=== PATIENT | male | born 1935 | race Caucasian/White ===

== ENCOUNTER 2017-07-21 06:37 | Day surgery (SDC) | payer OTHER ==
[~2017-07-21] VITALS: Ht 177.8 cm; Wt 85.3 kg
[2017-07-21] MEDS ORDERED: IOHEXOL 350 MG/ML 50 ML BTL (for Cath Lab) OTHER ONE (06:38)
[2017-07-21] MEDS ORDERED: IOHEXOL 350 MG/ML 100 ML BTL (for Cath Lab) OTHER ONE (06:38)
[2017-07-21] MEDS ORDERED: VITA100021 SL (07:09)
[2017-07-21] MEDS ORDERED: ASPI325T27 PO (07:09)
[2017-07-21] MEDS ORDERED: NITR0.4S SL (07:09)
[2017-07-21] MEDS ORDERED: ENAL20TA PO (07:09)
[2017-07-21] MEDS ORDERED: ISOS30TA3 PO (07:09)
[2017-07-21] MEDS ORDERED: LABE300T PO (07:09)
[2017-07-21] MEDS ORDERED: APIX5TAB PO (07:09)
[2017-07-21] MEDS ORDERED: ATOR80TA45 PO (07:09)
[2017-07-21] MEDS ORDERED: HYDR25TA5 PO (07:09)
[2017-07-21] MEDS ORDERED: AMLO5TAB2 PO (07:09)
[2017-07-21 07:12] VITALS: BP 158/93; PULSE 62; RESP 16; TEMP 97.6; O2SAT 98
[2017-07-21] MEDS ORDERED: NS 1000P @30 MLS/HR (KVO) IV SCH (07:15)
[2017-07-21 07:21] LABS: AUTOMATED NEUTROPHIL # 5.5 TH/MM3 (1.8-7.7); BASOPHIL # 0.1 TH/MM3 (0-0.2); EOSINOPHIL # 0.2 TH/MM3 (0-0.4); HEMATOCRIT 36.9 % (39.0-51.0); LYMPH % 13.6 % (9.0-44.0); LYMPHOCYTE # 1.1 TH/MM3 (1.0-4.8); MEAN CELL VOLUME 89.6 FL (80.0-100.0); MEAN CORPUSCULAR HEMOGLOBIN 31.6 PG (27.0-34.0); MEAN CORPUSCULAR HGB CONC 35.2 % (32.0-36.0); MEAN PLATELET VOLUME 6.8 FL (7.0-11.0); MONO % 11.4 % (0.0-8.0); MONOCYTE # 0.9 TH/MM3 (0-0.9); PLATELET COUNT 244 TH/MM3 (150-450); RED BLOOD COUNT 4.11 MIL/MM3 (4.50-5.90); RED CELL DISTRIBUTION WIDTH 13.8 % (11.6-17.2); WHITE BLOOD COUNT 7.7 TH/MM3 (4.0-11.0)
[2017-07-21 07:30] LABS: INTERNATIONAL NORMALIZED RATIO 1.1 RATIO; PROTHROMBIN TIME - PATIENT 10.7 SEC (9.8-11.6)
[2017-07-21 07:40] LABS: BICARBONATE 32.6 MEQ/L (21.0-32.0); CALCIUM 9.8 MG/DL (8.5-10.1); CREATININE 0.77 MG/DL (0.60-1.30)
[2017-07-21] MEDS ORDERED: POTASSIUM CHLORIDE 20 MEQ CONTROLLED RELEASE TAB PO ONE (08:15)
[2017-07-21] MEDS ORDERED: HEPARIN-NS/PF INJ 1,000 ML ONE (08:20)
[2017-07-21] MEDS ORDERED: MIDAZOLAM HCL 2 MG/2 ML VIAL ONE (08:20)
--- NOTE | 2017-07-21 09:46 | CATHPROC ---
[employer] HIS Report Study Information Study Number Admission Scheduled Start Study Start [id number] Jul 21 2017 6:37AM 07/21/2017 Jul 21 2017 8:20AM [place] [facility] Cardiac Catheterization Admit Source Facility Department Other [facility] Physician and Clinical Staff Initial Henrik Lutz Checker In Ruma Ko BSN Checker In Renato Ernandez,KORIN Recorder Ross Will,RT(R) Scrub Iman Moreno,RT(R) Procedures Performed Procedure Location (Site) Vessel Name Coronary Angiograms LCA Left Coronary Coronary Angiograms RCA Right Coronary Coronary Angiograms SVG-OM CIRC Coronary Angiograms Gft, RCA Ost Right Coronary Coronary Angiograms Subclav. Art. (Lft.) Subclavian Art. Coronary Angiograms Subclav. Art. (Rt.) Subclavian Art. L Heart Cath Wire insertion Fem Art (right) Femoral Art Equipment Time Media Operator Description Size Mfg Part Number Used/Scraped TRANSDUCER, TRUWAVE [id number] 08:37 GOODMAN NIXON * Used W/ANNAMARIE *[id number] INTRODUCER SET, 08:37 [employer] FR 5 [id number] *[id number] Used MICROPUNCTURE, STIFFENED [id number] *[id number] [id number] *[id number] WIRE, HYDROSTEER 150CM [id number] 08:54 DAIG/[employer] 150CM Used ANGLED GLIDE *[id number] 08:37 [employer] INDUSTRIES PACK, CCL CUSTOM * Used *[id number] 08:38 MEDTRONIC JR 4.0 DXTERITY CATHETER FR 5 Used *[id number] 08:37 QUALIA (formerly known as [employer]) MEDICAL WIRE, 3MMJ .035 180CM 180CM Used *[id number] 08:37 NAMIC MANIFOLD, 4 PORT * Used *[id number] 08:37 NYCOMED OMNIPAQUE, 350 MG, 150ML 150ML [id number] Used [id number] 08:37 BROWN MEDICAL BLANKET,WARM AIR CCL * Used *[id number] 08:37 TERUMO MEDICAL SHEATH, FR5 TERUMO (10CM) FR 5 Used *[id number] WIRE, ANGLE GLIDE STIFF .035 [id number] 09:02 TERUMO MEDICAL/RAYMOND 260CM Used 260CM *[id number] Equipment Model, Serial, Lot Number and Expiration Data Description Model Number Serial Number Lot Number Expiration Date JR 4.0 DXTERITY CATHETER [id number] 03-26-2020 WIRE, HYDROSTEER 150CM [id number] 12-20-2019 ANGLED GLIDE History: Current Medications Medication Dosage/Unit Route Frequency Last Date/Time Taken ASA Statins (any) ELIQUIS NTG SL History: Allergies Allergy Reaction No Known Allergies History: Risk Factors Family History of Hypertension Dyslipidemia Previous TX Previous Heart Failure Premature CAD Yes Yes Yes Yes No Prior Valve Prior PCI Prior CABG Prior CABGDate Surgery No No Yes 06/22/1990 Cerebrovascular 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 Diabetes Disease Disease Disease No No No No No History: Symptoms/Diagnosis Selection Items Chest pain History: CV Disease Selection Items Cardiomyopathy Known CAD TX History: Stress Tests Stress or Imaging Studies Performed Yes Standard Exercise Stress Test No Stress Echo No Stress Test SPECT Stress Test SPECT Result Stress Test SPECT Ischemia Risk/Extent Yes Positive Intermediate Stress Test CMR No Cardiac CTA Coronary Calcium Score No No History: Arrhythmias Selection Items Atrial fibrillation History: Other Disease Selection Items CAD HTN History: Other Current Smoker No Labs Hgb (g/dl) Hct (%) RBC (MIL/MM3) WBC (l/cumm) Platelets (thousands) 11.60-17.00 35.00-51.00 4.00-5.90 4.00-11.00 150.00-450.00 13.0 36.9 4.1 7.7 244 Glucose (mg/dl) BUN (mg/dl) Creatinine (mg/dl) BUN:Creatinine (1:x) 74.00-106.00 7.00-18.00 0.50-1.30 10.00-20.00 117 10 0.7 14.3 Na (meq/l) K (meq/l) Cl (meq/l) CO2 (mmol/L) Ca (mg/dl) 136.00-145.00 3.50-5.10 98.00-107.00 21.00-32.00 8.50-10.10 134 3.2 94 32.6 9.8 PT (sec) PTT (sec) INR (PTT:PT) 9.80-11.60 24.30-30.10 0.90-1.10 10.7 26.3 1.1 CPK-MB (ng/ML) 0.50-3.60 Not Drawn Medication Medication Total Dose (Bolus/Oral) Medication Total Dosage/Unit 1% XYLOCAINE 20 mL FENTANYL 25 mcg VERSED 0.5 mg Medications (Bolus/Oral) Medication Time Given Dosage/Unit Administered By Reason VERSED 07/21/2017 8:41:02 AM 0.5 mg Renato Ernandez 0.5 mg VERSED given in lab by Renato Ernandez RN in Right Antecubital via Peripheral IV. FENTANYL 07/21/2017 8:41:10 AM 25 mcg Renato Ernandez 25 mcg FENTANYL given in lab by Renato Ernandez RN in Right Antecubital via Peripheral IV. 1% XYLOCAINE 07/21/2017 8:42:31 AM 20 mL Renato Ernandez 20 mL 1% XYLOCAINE given in lab by Renato Ernandez RN in Right Groin via Subcutaneous. Medication (Drip) Medication Time Given Dosage/Unit Concentration/Unit Diluent (ml) Solution IV Solutions 07/21/2017 8:21:20 AM 0 mL (IV) 500 NaCl .9 IV Solutions given in lab by Renato Ernandez RN in Right Antecubital via Peripheral IV. Pump/Drip Flow = 20 ml/hr using NaCl .9. Initial Case Assessment Cardiovascular HR Rhythm NIBP Chest Pain 57 Sinus 162/95 0 Edema Present Skin color Skin None Normal Warm Dry Circulatory - Right Pulses Dorsalis Pedis Femoral 3 3 Scale (0,1,2,3,4,d) Circulatory - Left Pulses Dorsalis Pedis Femoral 3 3 Scale (0,1,2,3,4,d) Neurological State Oriented to time-place- Alert Moves all extremities person Respiration - General Respiration Rate SpO2 (%) O2 (lpm) (B/min) 19 98 0 Final Case Assessment Cardiovascular HR Rhythm NIBP Chest Pain 66 Sinus 154/94 0 Edema Present Skin color Skin None Normal Warm Dry Circulatory - Right Pulses Dorsalis Pedis Femoral 3 3 Scale (0,1,2,3,4,d) Circulatory - Left Pulses Dorsalis Pedis Femoral 3 3 Scale (0,1,2,3,4,d) Neurological State Oriented to time-place- Alert Moves all extremities person Respiration - General Respiration Rate SpO2 (%) O2 (lpm) (B/min) 13 95 0 Chronological Log Time Study Chronological Log 8:19:42 Patient arrived via Bed. 8:20:47 Patient Name, D.O.B, / Armband Verified By R.N. 8:20:48 Consent signed by the physician and the patient and verified by the [facility] staff. 8:20:49 Pre-op and post- op instructions given; patient acknowledges understanding of instructions. 8:20:50 Verbal Stimulation=2 Physical Stimulation=2 Airway=2 Respiration=2 TOTAL=8. (0=absent, 1=li mited, 2=present) 8:20:52 Presedation assessment performed by [facility] RN. 8:21:12 Patient has been NPO for More than 6Hrs. 8:21:13 Skin Breakdown- 8:21:14 Patient Warmer Placed on the Table. 8:21:17 Alivia Prominences Protected 8:21:19 A # 20 IV was noted in the Antecubital (right). Grade = 0 IV Solutions given in lab by Renato Ernandez RN in Right Antecubital via Peripheral IV. Pump/Dri p Flow = 20 ml/hr using 8:21:20 NaCl .9. 8:21:21 History and physical on the chart or being dictated. Assessment: Initial Case, HR=57 BPM, Rhythm=Sinus, VJVH=895/95 mmhg, Chest Pain=0, Edema=None, Color=Normal, Skin = Warm, Dry Right Pulses: Edward Ped=3, Femoral=3 8:21:22 Left Pulses: Edward Ped=3, Femoral=3 Neurological: State=Alert, Ox3, AQUINO Respiration: Resp=19 B/min, SpO2=98 %, O2=0 lpm Vitals capture started with the following parameters, Patient=Adult, Interval=5 min, Initial Pre ujpyv=004 mmHg, 8:25:06 Deflation Rate=5 mmHg, Cuff placed on Left Arm 8:26:12 Reference ECG taken 8:26:32 HR=62 bpm, YUKO=045/87 mmhg, SpO2=97.0 %, Resp=18 B/min, Pain=0, Sherry=10, Malave=2 8:30:40 HR=66 bpm, CYNP=739/95 mmhg, SpO2=96.0 %, Resp=12 B/min, Pain=0, Sherry=10, Malave=2 8:32:53 Bilateral groins prepped with 2% chlorhexidine, and draped after a 3 minute waiting time. 8:35:30 MD paged 8:35:41 Pressure channel 1 zeroed. 8:35:43 HR=65 bpm, IHHZ=539/93 mmhg, SpO2=98.0 %, Resp=13 B/min, Pain=0, Sherry=10, Malave=2 8:36:33 MD arrived. Time Out. Correct patient, correct procedure, correct physician, power injector not loaded with contrast with surgical 8:39:55 team present. Time Out Concurred by MD and individual staff in procedure. 8:40:20 Case Start 8:40:42 HR=63 bpm, NKZT=250/97 mmhg, SpO2=94.0 %, Resp=12 B/min, Pain=0, Sherry=10, Malave=2 8:41:02 0.5 mg VERSED given in lab by Renato Ernandez RN in Right Antecubital via Peripheral IV. 8:41:10 25 mcg FENTANYL given in lab by Renato Ernandez RN in Right Antecubital via Peripheral IV. 8:42:31 20 mL 1% XYLOCAINE given in lab by Renato Ernandez RN in Right Groin via Subcutaneous. 8:42:51 Access site was Right Femoral Artery. 8:43:19 A SHEATH, FR5 TERUMO (10CM) FR 5 was advanced into the Fem Art (right) using the Percutaneou s technique. 8:45:10 An injection in the Fem Art (right) was made through the SHEATH, FR5 TERUMO (10CM) FR 5. 8:45:41 HR=60 bpm, PFQS=964/90 mmhg, SpO2=95.0 %, Resp=11 B/min, Pain=0, Sherry=10, Malave=2 A JR 4.0 DXTERITY CATHETER FR 5 was advanced over a wire. OMNIPAQUE, 350 MG, 150ML 150ML was use d for 8:45:51 injections. Recorded Pressure: Ao, HR=66, Condition=Condition 1 8:48:22 (Aorta) Ao 159/74/110 8:48:46 The RCA was injected and visualized at various angles. OMNIPAQUE, 350 MG, 150ML 150ML used. 8:50:43 HR=58 bpm, WCWB=288/91 mmhg, SpO2=96.0 %, Resp=18 B/min, Pain=0, Sherry=10, Malave=2 8:51:40 The Gft, RCA Ost was injected and visualized at various angles. OMNIPAQUE, 350 MG, 150ML 150 ML used. 8:52:44 A WIRE, 3MMJ .035 180CM 180CM was inserted via Fem Art (right). 8:53:16 Wire removed 8:54:02 A WIRE, HYDROSTEER 150CM ANGLED GLIDE 150CM was inserted via Fem Art (right). 8:55:44 HR=68 bpm, UNWP=031/87 mmhg, SpO2=95.0 %, Resp=7 B/min, Pain=0, Sherry=10, Malave=2 8:55:58 Wire removed 8:57:12 A WIRE, HYDROSTEER 150CM ANGLED GLIDE 150CM was inserted via Fem Art (right). 9:00:47 HR=58 bpm, FVXP=452/81 mmhg, SpO2=97.0 %, Resp=14 B/min, Pain=0, Sherry=10, Malave=2 9:02:12 Wire removed 9:02:13 A WIRE, ANGLE GLIDE STIFF .035 260CM 260CM was inserted via Fem Art (right). 9:03:47 Wire removed 9:05:46 HR=70 bpm, JPLA=237/76 mmhg, SpO2=93.0 %, Resp=23 B/min, Pain=0, Sherry=10, Malave=2 9:07:11 The Subclav. Art. (Rt.) was injected and visualized at various angles. OMNIPAQUE, 350 MG, 15 0ML 150ML used. 9:10:23 A WIRE, 3MMJ .035 180CM 180CM was inserted via Fem Art (right). 9:10:47 HR=57 bpm, HITC=862/86 mmhg, SpO2=93.0 %, Resp=35 B/min, Pain=0, Sherry=10, Malave=2 9:11:14 Wire removed 9:11:15 A WIRE, HYDROSTEER 150CM ANGLED GLIDE 150CM was inserted via Fem Art (right). 9:13:49 Wire removed The Subclav. Art. (Lft.) was injected and visualized at various angles. OMNIPAQUE, 350 MG, 150M L 150ML used. To 9:13:50 visualize the PAREDES. After removing the current catheter a JL 4.0 INFINITI CATHETER FR 5 was advanced over a WIRE, 3 MMJ .035 180CM 9:15:06 180CM. 9:15:46 HR=57 bpm, OXFU=204/86 mmhg, SpO2=95.0 %, Resp=24 B/min, Pain=0, Sherry=10, Malave=2 9:16:44 The LCA was injected and visualized at various angles. OMNIPAQUE, 350 MG, 150ML 150ML used . After removing the current catheter a AL 1 INFINITI CATHETER FR 5 was advanced over a WIRE, 3MM J .035 180CM 9:18:19 180CM. 9:20:34 The SVG-OM was injected and visualized at various angles. OMNIPAQUE, 350 MG, 150ML 150ML us ed. 9:20:47 HR=60 bpm, TAZY=050/90 mmhg, SpO2=93.0 %, Resp=15 B/min, Pain=0, Sherry=10, Malave=2 9:25:44 HR=70 bpm, ZCMZ=614/90 mmhg, SpO2=91.0 %, Resp=21 B/min, Pain=0, Sherry=10, Malave=2 9:30:45 HR=73 bpm, AJUI=679/94 mmhg, SpO2=91.0 %, Resp=12 B/min, Pain=0, Sherry=10, Malave=2 9:30:58 Catheter was removed 9:31:36 Case End 9:31:46 Sheath(s) left in place, will be removed in Holding Area 9:32:46 Sterile dressing applied to site 9:32:47 No case complications noted. 9:32:48 Cine recording checked. Assessment: Final Case, HR=66 BPM, Rhythm=Sinus, ETUA=106/94 mmhg, Chest Pain=0, Edema=None, Color=Normal, Skin = Warm, Dry Right Pulses: Edward Ped=3, Femoral=3 9:32:50 Left Pulses: Edward Ped=3, Femoral=3 Neurological: State=Alert, Ox3, AQUINO Respiration: Resp=13 B/min, SpO2=95 %, O2=0 lpm 9:34:39 Bedside Report will be given. 9:34:43 A Left Heart Cath was performed. 9:35:46 HR=69 bpm, ZOBJ=399/95 mmhg, Resp=17 B/min, Pain=0, Sherry=10, Malave=2 9:36:06 Vitals capture stopped. End Study - Contrast Media Used In Study Contrast Total Opened (mL) Total Used (mL) Total Wasted (mL) Omnipaque 150 130 20 End Study - Maximum Contrast Load Max Contrast Load (mL) 609.4 End Study - Radiation Exposure Fluoro Time (minutes) 19.7 End Study - Patient Disposition Complications Transferred To Interventional Outcome No Outpatient Bed No attempt made
[2017-07-21] MEDS ORDERED: ONDANSETRON HCL 4 MG/2 ML VIAL IV PUSH PRN (10:00)
[2017-07-21] MEDS ORDERED: MISC INFORMATION XX ONE (10:00)
[2017-07-21] MEDS ORDERED: ATROPINE SULFATE 1 MG/ML VIAL IV PUSH PRN (10:00)
[2017-07-21] MEDS ORDERED: SODIUM CHLOR 0.9% 250 ML INJ 250 ML IV PRN (10:00)
[2017-07-21] MEDS ORDERED: oxyCODONE/ACETAMINOPHEN 5 MG/325 MG TAB PO PRN ×2 (10:00)
--- NOTE | 2017-07-22 00:28 | EKG ---
Date Performed: 07/21/2017 Time Performed: 07:19:30 PTAGE: 82 years EKG: Atrial fibrillation. Prolonged QT interval Inferior/lateral ST-T changes may be due to myoc ardial ischemia Abnormal ECG NO PREVIOUS TRACING DOCTOR: Henrik Parnell Interpretating Date/Time 07/22/2017 00:27:48
--- NOTE | 2017-07-22 23:56 | MA ---
cc: HENRIK HARVEY DO DATE: 07/21/2017 PROCEDURE Coronary angiogram, bypass angiogram, moderate sedation 50 minutes. PREPROCEDURE DIAGNOSIS Abnormal stress test, chest pain. POSTPROCEDURE DIAGNOSIS Multivessel coronary artery disease, history of CABG x2 separate operations (2/5 grafts patent). MEDICATIONS Versed 0.5 mg. Fentanyl 25 mcg. CONTRAST 130 cc Fluoroscopy: 19.7 minutes Moderate sedation: 50 minutes ESTIMATED BLOOD LOSS 10 cc PROCEDURAL SUMMARY Poonam is a pleasant 82 year-old male who sees my partner, Dr. Smith, in the office and presented with his chest pain and abnormal stress test. Because of this he was recommended cardiac catheterization. Risks, benefits and alternatives were explained to him and he consented as such. He was brought to lab and prepped in the usual sterile fashion. Right femoral artery was accessed using a modified Seldinger technique and placement of a 5-Chinese sheath. This was easily aspirated and flushed. A JR-4 was advanced over a J-wire to the ascending aorta and used for selective angiography of the right coronary artery system as well as the vein graft to the RCA. This is then taken up to the right brachiocephalic for a nonselective shot of the right subclavian. This was then taken up to the left subclavian for nonselective shot of the PAREDES to LAD. This was exchanged out for a JL-4 which was used for selective angiography of the left coronary artery system. Finally this was exchanged out for an L-1 which was used for selective angiography of the free SONIA to the obtuse marginal. This was removed over a J-wire. Sheath was sutured in place with a plan to remove in the holding area. 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 FINDINGS Left main distal 95% disease. LAD 100% occluded in the ostial portion. Left circumflex 90% ostial disease. Distally it does supply collaterals to possible PDA. RCA 100% occluded in the proximal portion. PAREDES to LAD widely patent. Distally the LAD fills both antegrade and retrograde. Free SONIA to obtuse marginal is patent with a 70% lesion in the midportion. Distally it supplies a large obtuse marginal which supplies collaterals to a second obtuse marginal. SVG to RCA 100% occluded. SVG to obtuse marginal known to be 100% occluded. SVG to LAD known to be occluded. IMPRESSION 1. Abnormal stress test showing inferior ischemia. 2. Multivessel coronary artery disease. 3. History of CABG x2 separate operations (2/5 grafts patent). RECOMMENDATIONS 1. Mr. Foster presented with a stress test showing inferior ischemia and this is most likely due to some of the collaterals to that area, mostly from the circumflex system. 2. Since being placed on Imdur he states that he has been back walking and not having chest pain. Because of this, I think it is reasonable to continue to treat him medically for his significant disease. 3. If he does have further episodes of chest pain, he will call main and we will discuss possible intervention on his free SONIA to obtuse marginal. He may get the most benefit out of stenting the left main into the left circumflex although this is overall a very difficult procedure as the left circumflex comes off at a 90 degree angle from the left main. If he continues to have chest pain, will consider higher risk procedure for this. 4. He will be watched in discharge later today. Thank you for allowing me to see Poonam Foster. If there are any questions, please do not hesitate to call. Henrik Harvey DO LINDSAY/FLAVIA /10:57 PM /11:18 PM
== END 2017-07-21 15:15 | disposition home or self-care (01) ==
LOC: HCAT 06:37 → HDIC 06:38 → HCAT 15:15
PROVIDERS: ATTEND Nuclear Medicine Nuclear Cardiology
DX: I25.10 Atherosclerotic heart disease of native coronary artery without angina pectoris (principal); R94.39 Abnormal result of other cardiovascular function study; R07.9 Chest pain, unspecified; Z95.1 Presence of aortocoronary bypass graft
CPT/HCPCS: 80048; 85025; 85610; 85730; 93005; 93454; 99152; 99153; C1769; C1893; J1644; J2250; J3010; Q9967

== ENCOUNTER 2017-09-01 06:27 | Day surgery (SDC) | payer OTHER ==
[~2017-09-01] VITALS: Ht 177.8 cm; Wt 83.5 kg
[2017-09-01] VITALS (13 sets, daily range): BP systolic 124–150; BP diastolic 69–91; PULSE 58–72; RESP 16–18; TEMP 97.5–98.1; O2SAT 96–97
[~2017-09-01 06:27] MED LIST: AMLO5TAB2 PO; APIX5TAB PO; ASPI325T27 PO; ATOR80TA45 PO; ENAL20TA PO; HYDR25TA5 PO; ISOS30TA3 PO; LABE300T PO; NITR0.4S SL; VITA100021 SL
[2017-09-01] MEDS ORDERED: IOHEXOL 350 MG/ML 100 ML BTL (for Cath Lab) OTHER ONE (06:28)
[2017-09-01] MEDS ORDERED: NS 1000P @30 MLS/HR (KVO) IV SCH (07:00)
[2017-09-01 07:15] LABS: AUTOMATED NEUTROPHIL # 5.4 TH/MM3 (1.8-7.7); BASOPHIL % 0.6 % (0.0-2.0); EOSINOPHIL # 0.3 TH/MM3 (0-0.4); EOSINOPHIL % 3.5 % (0.0-4.0); HEMOGLOBIN 12.2 GM/DL (13.0-17.0); MEAN CELL VOLUME 90.1 FL (80.0-100.0); MEAN CORPUSCULAR HEMOGLOBIN 31.3 PG (27.0-34.0); MEAN CORPUSCULAR HGB CONC 34.8 % (32.0-36.0); MEAN PLATELET VOLUME 7.1 FL (7.0-11.0); MONO % 10.6 % (0.0-8.0); MONOCYTE # 0.8 TH/MM3 (0-0.9); NEUT % 72.3 % (16.0-70.0); PLATELET COUNT 238 TH/MM3 (150-450); RED BLOOD COUNT 3.89 MIL/MM3 (4.50-5.90); RED CELL DISTRIBUTION WIDTH 14.2 % (11.6-17.2); WHITE BLOOD COUNT 7.6 TH/MM3 (4.0-11.0)
[2017-09-01] MEDS ORDERED: ECASA81 PO (07:20)
[2017-09-01 07:23] LABS: INTERNATIONAL NORMALIZED RATIO 1.1 RATIO; PROTHROMBIN TIME - PATIENT 11.4 SEC (9.8-11.6)
[2017-09-01 07:50] LABS: BICARBONATE 30.7 MEQ/L (21.0-32.0); CALCIUM 10.1 MG/DL (8.5-10.1); CREATININE 0.97 MG/DL (0.60-1.30)
[2017-09-01] MEDS ORDERED: HEPARIN-NS/PF FLUSH BAG 2,000 ML IV FLUSH ONE (08:12)
[2017-09-01] MEDS ORDERED: HEPARIN SODIUM - IV 10,000 UNITS/10 ML VIAL ONE (08:13)
[2017-09-01] MEDS ORDERED: NITROGLYCERIN INJ 5 ML ONE (08:13)
[2017-09-01] MEDS ORDERED: MIDAZOLAM HCL 2 MG/2 ML VIAL ONE (08:13)
[2017-09-01] MEDS ORDERED: CLOPIDOGREL 300 MG TAB ONE (09:24)
--- NOTE | 2017-09-01 10:16 | CATHPROC ---
[facility] HIS Report Study Information Study Number Admission Scheduled Start Study Start [id number] Sep 01 2017 6:27AM 09/01/2017 Sep 01 2017 8:00AM [place] Service Cardiac Catheterization Admit Source Facility Department Other [facility] - Prescription Clerk Lenses Physician and Clinical Staff Initial MD Parnell, Henrik Day Camp Counselor Dunia Rose,KORIN Recorder Wade LANGLEY, Severiano Landis RCIS(BS) Procedures Performed Procedure Location (Site) Vessel Name Drug Eluting Inflatio FREE SONIA-OM1 Left Coronary PTCA FREE SONIA-OM1 Left Coronary Wire insertion Fem Art (right) Femoral Art Equipment Time Candy Catcher Description Size Mfg Part Number Used/Scraped [id number] 09:24 [employer] WIRE, [employer] [employer] GRANDSLAM 180CM 180CM Used *[id number] WIRE, BALANCE MIDDLEWEIGHT [id number] 08:38 [employer] 190CM Used 190CM *[id number] TRANSDUCER, TRUWAVE [id number] 08:03 GOODMAN NIXON * Used W/STOCKCOCK *[id number] *[id number] *[id number] ENDOVASCULAR WIRE, SPIDERFX 4.0 X [id number] 09:02 40 X 320CM Used COMPANY 320/190CM *[id number] 08:03 [employer]patch INDUSTRIES PACK, CCL CUSTOM * Used *[id number] 09:16 MEDTRONIC BALLOON, 2.0 X 12MM EUPHORA 12MM Used *[id number] BALLOON, 3.0 X 12MM NC [id number] 09:43 MEDTRONIC 12MM Used EUPHORA *[id number] BALLOON, 3.25 X 6MM NC [id number] 09:50 MEDTRONIC 6MM Used EUPHORA *[id number] 09:13 MEDTRONIC STENT, 3.0 15MM JEANETTE 3.0 15MM Used *[id number] 08:39 Archive MEDICAL 30 ABHIJEET INDEFLATOR Used *[id number] 08:03 Archive MEDICAL SHEATH, FR6.5 PRELUDE 11CM FR 6.5 038ACT Used *[id number] 08:03 Archive MEDICAL WIRE, 3MMJ .035 180CM 180CM Used *[id number] 08:03 NAMIC MANIFOLD, 4 PORT * Used *[id number] 08:03 NYCOMED OMNIPAQUE, 350 MG, 150ML 150ML [id number] Used [id number] 08:03 BROWN MEDICAL BLANKET,WARM AIR CCL * Used *[id number] 08:56 TERUMO MEDICAL SHEATH, FR6 TERUMO (25CM) FR 6 Used *[id number] 09:30 VASCULAR SOLUTIONS CATHETER, FR6 GUIDELINER FR 6 5571 *[id number] Used Equipment Model, Serial, Lot Number and Expiration Data Description Model Number Serial Number Lot Number Expiration Date STENT, 3.0 15MM JEANETTE [id number] 03-09-2019 History: Current Medications Medication Dosage/Unit Route Frequency Last Date/Time Taken Beta Mohini NORVASC Imdur History: Allergies Allergy Reaction Latex bee venom protein (honey bee) adhesive tape History: Risk Factors Family History of Hypertension Dyslipidemia Previous LA Previous Heart Failure Premature CAD Yes Yes No Yes No Prior Valve Prior PCI Prior CABG Prior CABGDate Surgery No No Yes 06/22/1990 Cerebrovascular 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 Diabetes Disease Disease Disease No No No No No History: Stress Tests Stress or Imaging Studies Performed No History: Other Current Smoker No Labs Hgb (g/dl) Hct (%) WBC (l/cumm) Platelets (thousands) 11.60-17.00 35.00-51.00 4.00-11.00 150.00-450.00 12.2 35 7.6 238 Glucose (mg/dl) BUN (mg/dl) Creatinine (mg/dl) BUN:Creatinine (1:x) 74.00-106.00 7.00-18.00 0.50-1.30 10.00-20.00 113 11 1.0 11 Na (meq/l) K (meq/l) 136.00-145.00 3.50-5.10 137 3.6 INR (PTT:PT) 0.90-1.10 1.1 CPK-MB (ng/ML) 0.50-3.60 Not Drawn Medication Medication Total Dose (Bolus/Oral) Medication Total Dosage/Unit 1% XYLOCAINE 20 mL FENTANYL 25 mcg HEPARIN 8000 units OXYGEN 2 l/min PLAVIX 600 mg VERSED 0.5 mg Medications (Bolus/Oral) Medication Time Given Dosage/Unit Administered By Reason VERSED 09/01/2017 8:46:24 AM 0.5 mg Dunia Rose 0.5 mg VERSED given in lab by Dunia Rose RN via Peripheral IV. Ordered by Henrik Parnell 1% XYLOCAINE 09/01/2017 8:47:00 AM 20 mL Henrik Parnell 20 mL 1% XYLOCAINE given in lab by Henrik Parnell in Right Groin via Subcutaneous. Ordered by Henrik Lawson FENTANYL 09/01/2017 8:47:42 AM 25 mcg Dunia Rose 25 mcg FENTANYL given in lab by Dunia Rose RN via Peripheral IV. Ordered by Henrik Parnell OXYGEN 09/01/2017 8:59:34 AM 2 l/min Dunia Rose 2 l/min OXYGEN given in lab by Dunia Rose RN via Nasal. Ordered by Henrik Parnell HEPARIN 09/01/2017 8:59:56 AM 6000 units Dunia Rose 6000 units HEPARIN given in lab by Dunia Rose RN via Peripheral IV. Ordered by Shelton Parnell HEPARIN 09/01/2017 9:36:17 AM 2000 units Dunia Rose 2000 units HEPARIN given in lab by Dunia Rose RN via Peripheral IV. Ordered by Shelton Parnell PLAVIX 09/01/2017 10:00:36 AM 600 mg Dunia Rose 600 mg PLAVIX given in lab by Dunia Rose RN via Oral. Ordered by Henrik Parnell Initial Case Assessment Cardiovascular HR NIBP 69 161/103 Edema Present Skin color Skin None Normal Warm Dry Circulatory - Right Pulses Dorsalis Pedis Femoral 2 3 Scale (0,1,2,3,4,d) Circulatory - Left Pulses Dorsalis Pedis Femoral 2 3 Scale (0,1,2,3,4,d) Neurological State Oriented to time-place- Alert Moves all extremities person Respiration - General Respiration Rate SpO2 (%) (B/min) 17 96 Chronological Log Time Study Chronological Log 8:19:19 Patient arrived via Bed. 8:19:20 Patient Name, D.O.B, / Armband Verified By R.N. 8:19:20 Consent signed by the physician and the patient and verified by the Prescription Clerk Lenses staff. 8:19:21 Pre-op and post- op instructions given; patient acknowledges understanding of instructions. Verbal Stimulation=~VERBAL~ Physical Stimulation=~PHYSICAL~ Airway=~AIRWAY~ Respiration=~RESPIR ATION~ 8:19:21 TOTAL=~TOTAL~. (0=absent, 1=limited, 2=present) 8:19:22 Presedation assessment performed by Prescription Clerk Lenses RN. 8:19:24 Immediate Presedation assesment performed by physician. 8:19:24 Patient has been NPO for More than 6Hrs. 8:19: Skin Breakdown- none reported 8:: Patient Warmer Placed on the Table. 8:: Alivia Prominences Protected 8::29 A # 20 IV was noted in the Antecubital (right). Grade = 0 8:19:30 History and physical on the chart or being dictated. Vitals capture started with the following parameters, Patient=Adult, Interval=5 min, Initial Pr pempdz=365 mmHg, 8:23:27 Deflation Rate=5 mmHg, Cuff placed on Left Leg 8:24:47 RQ=178 bpm, KTEZ=124/103 mmhg, SpO2=96.0 %, Resp=17 B/min, Pain=0, Sherry=10, Malave=2 Assessment: Initial Case, HR=69 BPM, VCTR=771/103 mmhg, Edema=None, Color=Normal, Skin = Warm, D ry Right Pulses: Edward Ped=2, Femoral=3 8:27:09 Left Pulses: Edward Ped=2, Femoral=3 Neurological: State=Alert, Ox3, AQUINO Respiration: Resp=17 B/min, SpO2=96 % 8:28:32 MD arrived. 8:29:07 HR=61 bpm, EPWB=303/85 mmhg, SpO2=96.0 %, Resp=16 B/min, Pain=0, Malvae=2 8:34:08 HR=64 bpm, AAMO=523/101 mmhg, SpO2=97.0 %, Resp=11 B/min, Pain=0, Malave=2 8:35:06 Bilateral groins prepped with 2% chlorhexidine, and draped after a 3 minute waiting time. 8:37:17 Pressure channel 1 zeroed. 8:39:05 HR=58 bpm, LJSH=242/81 mmhg, SpO2=96.0 %, Resp=12 B/min, Pain=0, Malave=2 8:44:02 HR=63 bpm, NZEC=337/95 mmhg, SpO2=97.0 %, Resp=12 B/min, Pain=0, Malave=2 Time Out. Correct patient, correct procedure, correct physician, power injector loaded, or not l oaded with contrast with 8:45:51 surgical team present. Time Out Concurred by MD and individual staff in procedure. 8:46:04 Case Start 8:46:24 0.5 mg VERSED given in lab by Dunia Rose, RN via Peripheral IV. Ordered by Kirstie Parnell 20 mL 1% XYLOCAINE given in lab by Henrik Parnlel in Right Groin via Subcutaneous. Ordered by Parmjit 8:47:00 Henrik Jensen 8:47:42 25 mcg FENTANYL given in lab by Dunia Rose, KORIN via Peripheral IV. Ordered by Henrik Parnell 8:48:03 Access site was Right Femoral Artery. 8:48:18 A SHEATH, FR6.5 PRELUDE 11CM FR 6.5 was advanced into the Fem Art (right) using the Modified Seldinger technique. 8:49:07 HR=65 bpm, JKQV=744/83 mmhg, SpO2=95.0 %, Resp=12 B/min, Pain=0, Malave=2 8:50:39 An injection in the Fem Art (right) was made through the SHEATH, FR6.5 PRELUDE 11CM FR 6.5. 8:50:57 A WIRE, 3MMJ .035 180CM 180CM was inserted via Fem Art (right). 8:51:07 A AL 1 GUIDE CATHETER FR 6 was advanced over a wire. contrast was used for injections. 8:51:13 Wire removed Recorded Pressure: Ao, HR=67, Condition=Condition 1 8:52:17 (Aorta) Ao 153/78/108 8:54:39 HR=76 bpm, IDNP=892/91 mmhg, SpO2=92 %, Resp=14 B/min, Pain=0, Malave=2 8:56:02 Catheter was removed A SHEATH, FR6 TERUMO (25CM) FR 6 was exchanged in the Fem Art (right). This was necessary in ord er for catheter 8:56:11 support. 8:57:18 A LCB GUIDE CATHETER FR 6 was advanced over a wire. contrast was used for injections. 8:59:05 HR=64 bpm, ADDZ=483/93 mmhg, SpO2=88.0 %, Resp=23 B/min, Pain=0, Malave=2 8:59:34 2 l/min OXYGEN given in lab by Dunia Rose, RN via Nasal. Ordered by Henrik Parnell 8:59:56 6000 units HEPARIN given in lab by Dunia Rose, KORIN via Peripheral IV. Ordered by Henrik Bardales 9:00:21 A WIRE, BALANCE MIDDLEWEIGHT 190CM 190CM was inserted via Fem Art (right). 9:04:04 HR=65 bpm, ABJD=099/89 mmhg, SpO2=98.0 %, Resp=11 B/min, Pain=0, Malave=2 9:05:33 Activated Clotting Time Drawn 9:07:14 A WIRE, SPIDERFX 4.0 X 320/190CM 40 X 320CM was inserted via Fem Art (right). 9:09:05 HR=67 bpm, NYOG=082/97 mmhg, SpO2=99.0 %, Resp=15 B/min, Pain=0, Malave=2 9:10:49 Spider Wire removed 9:11:04 ACT (Normal Range 90-180) = 294 A STENT, 3.0 15MM JEANETTE 3.0 15MM was advanced through a LCB GUIDE CATHETER FR 6 over a WIRE, KIRBY NCE 9:12:48 MIDDLEWEIGHT 190CM 190CM. 9:13:38 Stent not deployed. Stent removed and intact. 9:14:07 HR=63 bpm, UCEJ=050/90 mmhg, SpO2=99.0 %, Resp=15 B/min, Pain=0, Malave=2 A BALLOON, 2.0 X 12MM EUPHORA 12MM was inserted over WIRE, BALANCE MIDDLEWEIGHT 190CM 190CM via the 9:15:21 FREE SONIA-OM1. A BALLOON, 2.0 X 12MM EUPHORA 12MM over a WIRE, BALANCE MIDDLEWEIGHT 190CM 190CM in the FREE RIM A- 9:18:09 OM1 was inflated using a 30 ABHIJEET INDEFLATOR at 8 abhijeet for 15 sec. A BALLOON, 2.0 X 12MM EUPHORA 12MM over a WIRE, BALANCE MIDDLEWEIGHT 190CM 190CM in the FREE RIM A- 9:18:34 OM1 was inflated using a 30 ABHIJEET INDEFLATOR at 8 abhijeet for 15 sec. 9:19:06 HR=69 bpm, XYCL=208/84 mmhg, SpO2=99.0 %, Resp=14 B/min, Pain=0, Malave=2 9:19:16 Balloon Removed. A STENT, 3.0 15MM JEANETTE 3.0 15MM was advanced through a LCB GUIDE CATHETER FR 6 over a WIRE, KIRBY NCE 9:20:44 MIDDLEWEIGHT 190CM 190CM. 9:22:28 Stent not deployed. Stent removed and intact. 9:24:07 HR=64 bpm, LPUR=335/82 mmhg, SpO2=99.0 %, Resp=20 B/min, Pain=0, Malave=2 9:24:14 A WIRE, PhosImmuneSLAM 180CM 180CM was inserted via Fem Art (right). A STENT, 3.0 15MM JEANETTE 3.0 15MM was advanced through a LCB GUIDE CATHETER FR 6 over a WIRE, KIRBY NCE 9:27:33 MIDDLEWEIGHT 190CM 190CM. 9:29:08 HR=66 bpm, GBPV=257/92 mmhg, SpO2=99.0 %, Resp=18 B/min, Pain=0, Malave=2 9:30:55 Grand Slam Wire removed 9:31:22 Stent not deployed. Stent removed and intact. 9:31:44 Activated Clotting Time Drawn 9:32:18 A CATHETER, FR6 GUIDELINER FR 6 was advanced over a wire. 9:34:09 HR=67 bpm, NFFB=910/88 mmhg, SpO2=99.0 %, Resp=9 B/min, Pain=0, Malave=2 A STENT, 3.0 15MM JEANETTE 3.0 15MM was advanced through a LCB GUIDE CATHETER FR 6 over a WIRE, KIRBY NCE 9:34:18 MIDDLEWEIGHT 190CM 190CM. 9:36:17 2000 units HEPARIN given in lab by Dunia Rose, KORIN via Peripheral IV. Ordered by Henrik Bardales 9:36:37 ACT (Normal Range 90-180) = 224 9:39:10 HR=75 bpm, DNIR=233/83 mmhg, SpO2=99.0 %, Resp=15 B/min, Pain=0, Malave=2 A STENT, 3.0 15MM JEANETTE 3.0 15MM was deployed using a 30 ABHIJEET INDEFLATOR at 14 atmospheres for 30 seconds in 9:39:37 the FREE SONIA-OM1. 9:40:54 Delivery device removed A BALLOON, 3.0 X 12MM NC EUPHORA 12MM was inserted over WIRE, BALANCE MIDDLEWEIGHT 190CM 190CM v ia 9:43:10 the FREE SONIA-OM1. 9:43:53 Activated Clotting Time Drawn 9:44:09 HR=77 bpm, WDVD=820/90 mmhg, SpO2=98.0 %, Resp=15 B/min, Pain=0, Malave=2 A BALLOON, 3.0 X 12MM NC EUPHORA 12MM over a WIRE, BALANCE MIDDLEWEIGHT 190CM 190CM in the FREE 9:45:59 SONIA-OM1 was inflated using a 30 ABHIJEET INDEFLATOR at 14 abhijeet for 24 sec. A BALLOON, 3.0 X 12MM NC EUPHORA 12MM over a WIRE, BALANCE MIDDLEWEIGHT 190CM 190CM in the FREE 9:46:41 SONIA-OM1 was inflated using a 30 ABHIJEET INDEFLATOR at 20 abhijeet for 20 sec. A BALLOON, 3.0 X 12MM NC EUPHORA 12MM over a WIRE, BALANCE MIDDLEWEIGHT 190CM 190CM in the FREE 9:47:23 SONIA-OM1 was inflated using a 30 ABHIJEET INDEFLATOR at 20 abhijeet for 20 sec. 9:48:20 Balloon Removed. 9:48:49 ACT (Normal Range 90-180) = 288 9:49:10 HR=60 bpm, AIEW=203/87 mmhg, SpO2=97.0 %, Resp=19 B/min, Pain=0, Malave=2 A BALLOON, 3.25 X 6MM NC EUPHORA 6MM was inserted over WIRE, BALANCE MIDDLEWEIGHT 190CM 190CM vi a the 9:51:02 FREE SONIA-OM1. A BALLOON, 3.25 X 6MM NC EUPHORA 6MM over a WIRE, BALANCE MIDDLEWEIGHT 190CM 190CM in the FREE R GRETTA- 9:51:22 OM1 was inflated using a 30 ABHIJEET INDEFLATOR at 16 abhijeet for 20 sec. A BALLOON, 3.25 X 6MM NC EUPHORA 6MM over a WIRE, BALANCE MIDDLEWEIGHT 190CM 190CM in the FREE SONIA- 9:52:15 OM1 was inflated using a 30 ABHIJEET INDEFLATOR at 16 abhijeet for 15 sec. 9:52:34 Balloon Removed. 9:54:11 HR=77 bpm, TNME=354/90 mmhg, SpO2=97.0 %, Resp=18 B/min, Pain=0, Malave=2 9:57:56 Catheter was removed 9:59:10 HR=64 bpm, CZXZ=456/86 mmhg, SpO2=97.0 %, Resp=24 B/min, Pain=0, Malave=2 9:59:14 Case End 10:00:03 In the Fem Art (right) the SHEATH, FR6 TERUMO (25CM) FR [address] by Jaxson Durán RCIS(BS). 10:00:14 Sterile dressing applied to site 10:00:17 No case complications noted. 10:00:22 Bedside Report will be given. 10:00:27 Implantable Device card placed in patient's chart. 10:00:29 DOCU called. Spoke to Anjali LANGLEY 10:00:36 600 mg PLAVIX given in lab by Dunia Rose, KORIN via Oral. Ordered by Henrik Parnell 10:03:53 Vitals capture stopped. 10:08:41 Patient moved to [facility] End Study - Contrast Media Used In Study Contrast Total Opened (mL) Total Used (mL) Total Wasted (mL) Omnipaque 160 160 0 End Study - Maximum Contrast Load Max Contrast Load (mL) 423.0 End Study - Radiation Exposure Fluoro Time (minutes) 23.7 End Study - Patient Disposition Complications Transferred To Interventional Outcome No Prescription Clerk Lenses Holding successful
[2017-09-01] MEDS ORDERED: SODIUM CHLOR 0.9% 1000 ML INJ 1,000 ML IV SCH (10:17)
[2017-09-01] MEDS ORDERED: ACETAMINOPHEN 325 MG TAB PO PRN (10:30)
[2017-09-01] MEDS ORDERED: oxyCODONE/ACETAMINOPHEN 5 MG/325 MG TAB PO PRN (10:30)
[2017-09-01] MEDS ORDERED: MISC INFORMATION XX ONE (10:30)
[2017-09-01] MEDS ORDERED: SODIUM CHLOR 0.9% 250 ML INJ 250 ML IV PRN (10:30)
[2017-09-01] MEDS ORDERED: ONDANSETRON HCL 4 MG/2 ML VIAL IV PUSH PRN (10:30)
[2017-09-01] MEDS ORDERED: ATROPINE SULFATE 1 MG/ML VIAL IV PUSH PRN (10:30)
[2017-09-01] MEDS ORDERED: MORPHINE SULFATE 2 MG/ML INJ IV PUSH PRN (10:30)
[2017-09-01] MEDS ORDERED: oxyCODONE/ACETAMINOPHEN 10 MG/325 MG TAB PO PRN (12:00)
--- NOTE | 2017-09-01 19:16 | EKG ---
Date Performed: 09/01/2017 Time Performed: 07:20:34 PTAGE: 82 years EKG: Atrial fibrillation. Inferior infarct - age undetermined Abnormal R wave progression Left v entricular hypertrophy Lateral ST-T changes Abnormal ECG PREVIOUS TRACING : 07/21/2017 07.19 Since the previous tracing, no significant change noted DOCTOR: Antonella Kaye Interpretating Date/Time 09/01/2017 19:14:24
[2017-09-01] MEDS ORDERED: ATORVASTATIN 80 MG TAB PO SCH (21:00)
[2017-09-01] MEDS: LABETALOL HCL 300 MG TAB PO SCH (21:26)
[2017-09-02] VITALS (10 sets, daily range): BP systolic 105–143; BP diastolic 56–78; PULSE 60–74; RESP 16–20; TEMP 97.4–98.5; O2SAT 96–98
[2017-09-02 07:28] LABS: AUTOMATED NEUTROPHIL # 5.7 TH/MM3 (1.8-7.7); BASOPHIL # 0.1 TH/MM3 (0-0.2); BASOPHIL % 0.7 % (0.0-2.0); EOSINOPHIL # 0.2 TH/MM3 (0-0.4); EOSINOPHIL % 2.9 % (0.0-4.0); HEMATOCRIT 31.9 % (39.0-51.0); HEMOGLOBIN 11.2 GM/DL (13.0-17.0); LYMPH % 13.6 % (9.0-44.0); LYMPHOCYTE # 1.1 TH/MM3 (1.0-4.8); MEAN CELL VOLUME 88.8 FL (80.0-100.0); MEAN CORPUSCULAR HEMOGLOBIN 31.1 PG (27.0-34.0); MONO % 10.3 % (0.0-8.0); MONOCYTE # 0.8 TH/MM3 (0-0.9); NEUT % 72.5 % (16.0-70.0); PLATELET COUNT 215 TH/MM3 (150-450); RED CELL DISTRIBUTION WIDTH 14.4 % (11.6-17.2); WHITE BLOOD COUNT 7.9 TH/MM3 (4.0-11.0)
[2017-09-02 07:48] LABS: BICARBONATE 27.9 MEQ/L (21.0-32.0); CALCIUM 9.3 MG/DL (8.5-10.1); CREATININE 0.73 MG/DL (0.60-1.30)
[2017-09-02] MEDS ORDERED: PLAV75TA29 PO (08:54)
[2017-09-02] MEDS: LABETALOL HCL 300 MG TAB PO SCH (08:57)
[2017-09-02] MEDS ORDERED: POTASSIUM CHLORIDE 10 MEQ CONTROLLED RELEASE TAB PO ONE (09:00)
[2017-09-02] MEDS ORDERED: ENALAPRIL MALEATE 10 MG TAB PO SCH (09:00)
[2017-09-02] MEDS ORDERED: amLODIPine BESYLATE 5 MG TAB PO SCH (09:00)
[2017-09-02] MEDS ORDERED: CLOPIDOGREL 75 MG TAB PO SCH (09:00)
[2017-09-02] MEDS ORDERED: ISOSORBIDE MONONITRATE 30 MG CR TAB (IMDUR) PO SCH (09:00)
[2017-09-02] MEDS ORDERED: ASPIRIN EC 81 MG TABEC PO SCH (09:00)
--- NOTE | 2017-09-02 11:58 | MA ---
cc: Henrik Parnell DO 09/01/2017 PROCEDURE: Bypass angiogram, Milton drug-eluting stent (3 x 15) to free SONIA to obtuse marginal 1, complex case, moderate sedation 73 minutes. PREPROCEDURE DIAGNOSIS: Unstable angina (Tristanian anginal score III), on multiple antianginals. POSTPROCEDURE DIAGNOSIS: Unstable angina, status post Milton drug-eluting stent (3 x 15) to free right internal mammary artery to obtuse marginal 1. MEDICATIONS: Versed 0.5 mg, Fentanyl 25 mcg, heparin 8000 units, Plavix 600 mg. CONTRAST USED: 160 mL. FLUOROSCOPY: 23.7 minutes. SEDATION: Moderate sedation, 73 minutes. ESTIMATED BLOOD LOSS: 40 mL. PROCEDURAL SUMMARY: Poonam Foster is a pleasant 82-year-old male who sees my partner, Dr. Smith, in the office and previously underwent cardiac catheterization showing a significant lesion in his free SONIA to obtuse marginal, as well as left main into left circumflex disease. He continued to have chest pain on multiple antianginals, to the point where he was afraid to leave the house due to the chest pain, and so he was brought back for a planned PCI of his free SONIA to obtuse marginal. Risks, benefits, and alternatives were explained to him and he consented to such. He was brought to the lab and prepped in the usual sterile fashion. The right femoral artery was accessed using modified Seldinger technique and placement of a 6-Burmese sheath. This was easily aspirated and flushed. I attempted to engage the free SONIA to OM with an AL1 but was unable to. Significant tortuosity in his iliacs made this difficult, and so a long 6-Burmese sheath was placed. A left coronary artery bypass guide was engaged into the free SONIA. The patient was given heparin as an anticoagulant. A BMW wire was placed distally. I attempted to place a filter wire distally but was unable to guide it through the tortuosities distally, and so this was removed. The lesion was predilated with a compliant balloon (2 x 12). At this time, the stent was unable to cross the lesion and so this was removed and a Grand Slam wire was placed distally. I once again was unable to place the stent, and so the Grand Slam was removed and a guideliner was used to help place the stent. An Papo drug-eluting stent (3 x 15) was placed over the lesion and inflated. This was postdilated first with a noncompliant balloon (3 x 12) and again focally in the mid portion with a noncompliant balloon (3.25 x 6). Final angiogram shows a well opposed stent with 30% stenosis, with good runoff, no perforation or dissections. Distally, this supplies collaterals to both the distal posterior lateral branch as well as to the anterior wall. The wire was removed. Guide was removed over a J-wire. The patient was loaded with 600 mg of Plavix. 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 FINDINGS: Free SONIA to first obtuse marginal with an 80% stenosis in the mid portion. IMPRESSIONS: 1. Unstable angina (Tristanian anginal class III) on multiple antianginals. 2. Status post Papo drug-eluting stent (3 x 15) to the free SONIA to the first obtuse marginal. RECOMMENDATIONS: 1. Mr. Foster underwent PCI of his free SONIA to obtuse marginal with a drug-eluting stent, and he will be recommended aspirin/Plavix therapy. 2. He will be restarted on his Eliquis tomorrow and discharged on triple therapy, with a plan to stop the aspirin after 1 month. 3. He understands that this is off-label use. 4. If stable in the morning, he will be discharged home, to follow up with Dr. Smith. Thank you for allowing me to see Poonam Fostre. If there are any questions, please do not hesitate to call. DO LINDSAY Ennis/AMI , 11:49 PM , 01:08 AM
--- NOTE | 2017-09-02 16:53 | PD.CARD.PN ---
Subjective Subjective Remarks No complaints overnight Objective Vital Signs / I&O Vital Signs Date Time Temp Pulse Resp B/P (MAP) Pulse Ox O2 Delivery O2 Flow Rate FiO2 09/02/17 09:00 62 09/02/17 08:00 64 09/02/17 07:00 66 09/02/17 07:00 98.3 72 20 143/68 (93) 97 09/02/17 06:00 61 09/02/17 05:00 64 09/02/17 04:00 60 09/02/17 03:00 97.4 72 16 131/78 (95) 96 09/02/17 03:00 72 09/02/17 02:00 70 09/02/17 01:00 72 09/02/17 00:00 70 09/02/17 00:00 98.5 74 16 105/56 (72) 98 09/01/17 23:00 58 09/01/17 22:00 60 09/01/17 21:00 66 09/01/17 20:00 68 09/01/17 20:00 98.1 70 16 143/74 (97) 97 09/01/17 19:00 72 09/01/17 17:30 61 140/71 (94) I/O 09/01/17 09/01/17 09/01/17 09/02/17 09/02/17 09/02/17 07:00 15:00 23:00 07:00 15:00 23:00 Intake Total 250 ml 480 ml 480 ml Output Total 200 ml 200 ml Balance 250 ml 280 ml 280 ml Intake Oral 480 ml 480 ml IV Total 250 ml Output Urine Total 200 ml 200 ml # Voids 2 # Bowel Movements 0 Physical Exam GENERAL: SKIN: Warm and dry. HEAD: Atraumatic. Normocephalic. EYES: Pupils equal and round. No scleral icterus. No injection or drainage. ENT: No nasal bleeding or discharge. Mucous membranes pink and moist. NECK: Trachea midline. No JVD. CARDIOVASCULAR: Regular rate and rhythm. RESPIRATORY: No accessory muscle use. Clear to auscultation. Breath sounds equal bilaterally. GASTROINTESTINAL: Abdomen soft, non-tender, nondistended. Hepatic and splenic margins not palpable. MUSCULOSKELETAL: Extremities without clubbing, cyanosis, or edema. No obvious deformities. Right femoral no hematoma, neurovascularly intact distally NEUROLOGICAL: Awake and alert. No obvious cranial nerve deficits. Motor grossly within normal limits. Five out of 5 muscle strength in the arms and legs. Normal speech. PSYCHIATRIC: Appropriate mood and affect; insight and judgment normal. Laboratory Laboratory Tests Test 09/02/17 06:00 09/02/17 07:00 Blood Urea Nitrogen 9 MG/DL Creatinine 0.73 MG/DL Random Glucose 98 MG/DL Calcium Level 9.3 MG/DL Sodium Level 137 MEQ/L Potassium Level 3.2 MEQ/L Chloride Level 101 MEQ/L Carbon Dioxide Level 27.9 MEQ/L Anion Gap 8 MEQ/L Estimat Glomerular Filtration Rate 103 ML/MIN White Blood Count 7.9 TH/MM3 Red Blood Count 3.60 MIL/MM3 Hemoglobin 11.2 GM/DL Hematocrit 31.9 % Mean Corpuscular Volume 88.8 FL Mean Corpuscular Hemoglobin 31.1 PG Mean Corpuscular Hemoglobin Concent 35.0 % Red Cell Distribution Width 14.4 % Platelet Count 215 TH/MM3 Mean Platelet Volume 7.0 FL Neutrophils (%) (Auto) 72.5 % Lymphocytes (%) (Auto) 13.6 % Monocytes (%) (Auto) 10.3 % Eosinophils (%) (Auto) 2.9 % Basophils (%) (Auto) 0.7 % Neutrophils # (Auto) 5.7 TH/MM3 Lymphocytes # (Auto) 1.1 TH/MM3 Monocytes # (Auto) 0.8 TH/MM3 Eosinophils # (Auto) 0.2 TH/MM3 Basophils # (Auto) 0.1 TH/MM3 CBC Comment DIFF FINAL Differential Comment Assessment and Plan Problem List: (1) Unstable angina ICD Codes: I20.0 - Unstable angina (2) CAD (coronary artery disease) ICD Codes: I25.10 - Atherosclerotic heart disease of [place] coronary artery without angina pectoris (3) Afib ICD Codes: I48.91 - Unspecified atrial fibrillation Assessment and Plan 1) s/p ALE to free SONIA to OM1 ASA/Plavix 2) Afib Start back on Eliquis 3) Triple therapy for 1 month then stop ASA 4) Cardiovascularly stable for discharge today Henrik Parnell DO Sep 02, 2017 16:52
--- NOTE | 2017-09-02 23:51 | EKG ---
Date Performed: 09/01/2017 Time Performed: 11:54:54 PTAGE: 82 years EKG: Atrial fibrillation with PVC(s) or aberrant ventricular conduction. Prolonged QT interval P ossible left ventricular hypertrophy Extensive ST-T changes are probably due to ventricular hypertrop hy Abnormal ECG PREVIOUS TRACING : 09/01/2017 07.20 Since the previous tracing, no significant change noted DOCTOR: Ra Ackerman Interpretating Date/Time 09/02/2017 23:47:20
== END 2017-09-02 11:04 | disposition home or self-care (01) ==
LOC: HDOC 06:27 → HDIC 06:28 → HCIS 13:19 → HDOC 09-02 11:04
PROVIDERS: ATTEND Nuclear Medicine Nuclear Cardiology
DX: I25.10 Atherosclerotic heart disease of native coronary artery without angina pectoris (principal); I48.91 Unspecified atrial fibrillation; R94.31 Abnormal electrocardiogram [ECG] [EKG]; Z79.899 Other long term (current) drug therapy; Z79.01 Long term (current) use of anticoagulants
CPT/HCPCS: 80048; 85002; 85025; 85347; 85610; 92928; 93005; 93454; 99152; 99153; C1725; C1757; C1769; C1874; C1887; C1893; J1644; J2250; J3010; J7030; Q9967